=== PATIENT | female | born 1980 | race Asian ===

== ENCOUNTER 2020-07-23 08:01 | Outpatient (REF) | payer OTHER, SELFPAY | END 2020-07-23 08:02 | disposition home or self-care (01) | LOC: HO.LAB 08:01 | PROVIDERS: Visit Provider Internal Medicine | DX: Z20.828 Contact with and (suspected) exposure to other viral communicable diseases (principal) | CPT/HCPCS: C9803; U0003 ==

== ENCOUNTER 2020-08-04 08:26 | Outpatient (REF) | payer OTHER, SELFPAY | END 2020-08-04 08:27 | disposition home or self-care (01) | LOC: HO.LAB 08:26 | PROVIDERS: PCP Internal Medicine; Visit Provider Internal Medicine | DX: Z20.828 Contact with and (suspected) exposure to other viral communicable diseases (principal) | CPT/HCPCS: C9803; U0003 ==